=== PATIENT | female | born 1985 | race Two or more races ===

== ENCOUNTER 2016-10-10 20:54 | Emergency (ER) | payer SELFPAY ==
[~2016-10-10] VITALS: Ht 160 cm; Wt 56.7 kg
[2016-10-10] MEDS ORDERED: BIRTH CONTROL PILLS (21:03)
[2016-10-10 21:07] VITALS: BP 133/83
[2016-10-10] MEDS ORDERED: Ketorolac 30mg Inj IV ONE (21:30)
[2016-10-10 22:02] LABS: BASOPHILS % (AUTO) 1.3 % (0.0-2.0); EOSINOPHILS % (AUTO) 2.6 % (0.0-3.0); LYMPHOCYTES % (AUTO) 29.5 % (20.0-45.0); MEAN CORPUSCULAR HEMOGLOBIN 33.7 PG (27.0-31.0); MEAN CORPUSCULAR HGB CONC 35.2 G/DL (32.0-36.0); MEAN CORPUSCULAR VOLUME 96 FL (80-99); MEAN PLATELET VOLUME 6.1 FL (6.5-10.1); MONOCYTES % (AUTO) 6.7 % (1.0-10.0); NEUTROPHILS % (AUTO) 59.9 % (45.0-75.0); PLATELET COUNT 240 K/UL (150-450); RED BLOOD COUNT 3.83 M/UL (4.20-5.40); RED CELL DISTRIBUTION WIDTH 11.3 % (11.6-14.8); WHITE BLOOD COUNT 6.8 K/UL (4.8-10.8)
[2016-10-10 22:15] LABS: APPEARANCE,URINE CLEAR; KETONES,URINE NEGATIVE (NEGATIVE); LEUKOCYTE ESTERASE ,URINE NEGATIVE (NEGATIVE); NITRITE,URINE NEGATIVE (NEGATIVE); PH,URINE 6.5 (4.5-8.0); PROTEIN,URINE NEGATIVE (NEGATIVE); UROBILINOGEN,URINE NORMAL MG/DL (0.0-1.0)
[2016-10-10 22:24] LABS: RBC,URINE 0-2 /HPF (0 - 2); SQUAMOUS EPITHELIAL CELL,UR FEW /LPF (NONE/OCC); WBC,URINE 0 /HPF (0 - 2)
[2016-10-10 22:30] LABS: TROPONIN I < 0.30 ng/mL (<=0.30)
[2016-10-10 22:35] LABS: ALANINE AMINOTRANSFERASE 26 U/L (3-33); ALBUMIN/GLOBULIN RATIO 2.3 (1.0-2.7); ANION GAP 12 (5-15); ASPARTATE AMINO TRANSFERASE 25 U/L (5-40); CARBON DIOXIDE 24 mEQ/L (20-30); CHLORIDE 103 mEQ/L (98-107); CREATININE 0.8 mg/dL (0.5-0.9); GLOMERULAR FILTRATION RATE > 60 mL/min (>60); HEMOLYSIS 3; POTASSIUM 3.8 mEQ/L (3.4-4.9); SODIUM 139 mEQ/L (135-145); TOTAL PROTEIN 7.1 g/dL (6.6-8.7)
--- NOTE | 2016-10-10 23:21 | Emergency Room Report ---
History of Present Illness General Chief Complaint: Chest Pain Source: Patient Present Illness HPI Patient presents complaining of a sharp left-sided chest pain. It radiates towards her back inside of her shoulder blade. Also she feels heaviness of her left arm. She stopped taking control pills 2 months ago. She hasn't any fevers, cough. The patient states the pain is pleuritic and sometimes fairly severe. She doesn't take any medication for it. Denies any calf swelling or pain. She is quite anxious as to the possible cause. No cardiac risk factors. Allergies: Coded Allergies: No Known Allergies (Unverified , 10/10/16) Patient History Past Medical History: see triage record Social History: Denies: smoking Social History Narrative Last Menstrual Period: August Reviewed Nursing Documentation: PMH: Agreed, PSxH: Agreed Nursing Documentation-PMH Past Medical History: No Stated History Review of Systems All Other Systems: negative except mentioned in HPI Physical Exam Vital Signs Date Time Temp Pulse Resp B/P Pulse Ox O2 Delivery O2 Flow Rate FiO2 10/10/16 20:58 97.5 101 16 133/83 100 Room Air Sp02 EP Interpretation: reviewed, normal General Appearance: well appearing, no apparent distress, GCS 15 Head: normocephalic Eyes: bilateral eye PERRL, bilateral eye normal inspection ENT: moist mucus membranes Neck: supple Respiratory: lungs clear, normal breath sounds, other - chest tenderness as well as scapular muscle tenderness/spasms Cardiovascular #1: regular rate, rhythm Cardiovascular #2: 2+ radial (L) Gastrointestinal: normal inspection, normal bowel sounds, non tender, no mass, non-distended Musculoskeletal: back normal, gait/station normal, normal range of motion Neurologic: alert, oriented x3, motor strength/tone normal, DTRs symmetric, sensory intact, cerebellar normal, normal gait, speech normal Psychiatric: anxious Skin: normal inspection, warm/dry Medical Decision Making Diagnostic Impression: Primary Impression: Chest pain Qualified Codes: R07.9 - Chest pain, unspecified ER Course Patient presents with chest pain. Cardiac risk factors are low. Pulse oximetry and vital signs are against this being a pulmonary embolus. Differential includes costochondritis, pneumothorax, muscle spasm and, bronchitis course others. We still need to exclude cardiac cause and EKG will be performed. Chest x-ray and labs will also be performed. The patient will be treated with Toradol. EKG is normal. Chest x-ray is normal. Labs were unremarkable except for a glucose of 120. The patient felt better. The patient stable for outpatient observation and treatment. Discussed need for MD to check HgbAIC and fast glucose. Laboratory Tests Test 10/10/16 21:45 White Blood Count 6.8 K/UL (4.8-10.8) Red Blood Count 3.83 M/UL (4.20-5.40) L Hemoglobin 12.9 G/DL (12.0-16.0) Hematocrit 36.6 % (37.0-47.0) L Mean Corpuscular Volume 96 FL (80-99) Mean Corpuscular Hemoglobin 33.7 PG (27.0-31.0) H Mean Corpuscular Hemoglobin Concent 35.2 G/DL (32.0-36.0) Red Cell Distribution Width 11.3 % (11.6-14.8) L Platelet Count 240 K/UL (150-450) Mean Platelet Volume 6.1 FL (6.5-10.1) L Neutrophils (%) (Auto) 59.9 % (45.0-75.0) Lymphocytes (%) (Auto) 29.5 % (20.0-45.0) Monocytes (%) (Auto) 6.7 % (1.0-10.0) Eosinophils (%) (Auto) 2.6 % (0.0-3.0) Basophils (%) (Auto) 1.3 % (0.0-2.0) Urine Color Pale yellow Urine Appearance Clear Urine pH 6.5 (4.5-8.0) Urine Specific [place] 1.005 (1.005-1.035) Urine Protein Negative (NEGATIVE) Urine Glucose (UA) Negative (NEGATIVE) Urine Ketones Negative (NEGATIVE) Urine Occult Blood 1+ (NEGATIVE) H Urine Nitrite Negative (NEGATIVE) Urine Bilirubin Negative (NEGATIVE) Urine Urobilinogen Normal MG/DL (0.0-1.0) Urine Leukocyte Esterase Negative (NEGATIVE) Urine RBC 0-2 /HPF (0 - 2) Urine WBC 0 /HPF (0 - 2) Urine Squamous Epithelial Cells Few /LPF (NONE/OCC) Urine Bacteria None /HPF (NONE) Urine HCG, Qualitative Negative Sodium Level 139 mEQ/L (135-145) Potassium Level 3.8 mEQ/L (3.4-4.9) Chloride Level 103 mEQ/L (98-107) Carbon Dioxide Level 24 mEQ/L (20-30) Anion Gap 12 (5-15) Blood Urea Nitrogen 13 mg/dL (7-23) Creatinine 0.8 mg/dL (0.5-0.9) Estimate Glomerular Filtration Rate > 60 mL/min (>60) Glucose Level 120 mg/dL (74-106) H Calcium Level 9.0 mg/dL (8.6-10.2) Total Bilirubin 0.4 mg/dL (0.0-1.2) Aspartate Amino Transferase (AST) 25 U/L (5-40) Alanine Aminotransferase (ALT) 26 U/L (3-33) Alkaline Phosphatase 60 U/L (35-104) Total Creatine Kinase 79 U/L (26-140) Troponin I < 0.30 ng/mL (<=0.30) Pro-B-Type Natriuretic Peptide 30 pg/mL (0-125) Total Protein 7.1 g/dL (6.6-8.7) Albumin 5.0 g/dL (3.5-5.2) Globulin 2.1 g/dL Albumin/Globulin Ratio 2.3 (1.0-2.7) EKG Diagnostic Results Rate: normal Rhythm: NSR ST Segments: no acute changes Rhythm Strip Diag. Results EP Interpretation: yes Rhythm: NSR, no PVC's, no ectopy Chest X-Ray Diagnostic Results Chest X-Ray Diagnostic Results : Chest X-Ray Ordered: Yes # of Views/Limited/Complete: 1 View Indication: Chest Pain EP Interpretation: Yes Interpretation: no consolidation, no effusion, no pneumothorax Impression: No acute disease Interpreting ER Provider: Electronically signed by Nahid Keene MD Last Vital Signs Date Time Temp Pulse Resp B/P Pulse Ox O2 Delivery O2 Flow Rate FiO2 10/10/16 23:40 87 16 107/69 100 Room Air 10/10/16 21:07 97.5 Status: improved Disposition: HOME, SELF-CARE Condition: Improved Scripts Methocarbamol* (ROBAXIN*) 500 Mg Tablet 500 MG PO TID Y for muscle spasms, #10 TAB 0 Refills Prov: Nahid Keene M.D. 10/10/16 Tramadol Hcl* (ULTRAM*) 50 Mg Tablet 50 MG ORAL Q6H Y for For Pain, #4 TAB 0 Refills Prov: Nahid Keene M.D. 10/10/16 Ibuprofen* (MOTRIN*) 600 Mg Tablet 600 MG ORAL Q6H Y for For Pain, #20 TAB Prov: Nahid Keene M.D. 10/10/16 Referrals: NOT CHOSEN [facility]/,REFERRING (PCP) Nahid Keene M.D. Oct 10, 2016 23:21
[2016-10-10] MEDS ORDERED: TRAMADOL HCL50 MG ORAL (23:28)
[2016-10-10] MEDS ORDERED: IBUPROFEN600 MG ORAL (23:28)
[2016-10-10] MEDS ORDERED: ROBAXIN500 MG PO (23:28)
[2016-10-10 23:40] VITALS: BP 107/69
--- NOTE | 2016-10-11 10:49 | Diagnostic Imaging Report ---
Indication: Chest pain Technique: One view of the chest Comparison: none Findings: Lungs and pleural spaces are clear. Heart size is normal . No significant change Impression: No acute process This agrees with the preliminary interpretation provided by the emergency room physician
--- NOTE | 2016-10-13 17:15 | Cardiology Report ---
APPROVED REPORT EKG Measurement Heart [id number] Normal sinus rhythm Low voltage QRS Nonspecific T wave abnormality Abnormal ECG
== END 2016-10-10 23:40 | disposition home or self-care (01) ==
LOC: EMR 21:15
DX: R07.89 Other chest pain (principal)
CPT/HCPCS: 36415; 71010; 80053; 81003; 81025; 82550; 83880; 84484; 85025; 93005; 96361; 96374; 96375; 99284; J1885; 96360